=== PATIENT | female | born 1960 | race Caucasian/White ===

== ENCOUNTER 2017-01-07 08:30 | Inpatient (IN) | payer OTHER ==
[~2017-01-07] VITALS: Ht 158 cm; Wt 66.5 kg
[2017-01-08 04:24] LABS: HCT 26.7 % (37.0-47.0); HGB 8.9 g/dl (12.5-16.0); MCH 29.8 pg (25.0-31.0); MCHC 33.3 g/dL (32.0-36.0); MCV 89.3 fL (78.0-100.0); MPV 8.7 fL (6.0-9.5); RBC 2.99 M/uL (4.20-5.40); RDW 12.8 % (11.5-14.0); WBC 13.6 K/uL (4.0-10.5)
[2017-01-08 04:47] LABS: CREATININE 0.5 mg/dL (0.5-1.0)
[2017-01-08 16:49] LABS: HCT 31.5 % (37.0-47.0); HGB 10.5 g/dl (12.5-16.0); MCH 29.7 pg (25.0-31.0); MCHC 33.3 g/dL (32.0-36.0); MPV 9.4 fL (6.0-9.5); RBC 3.54 M/uL (4.20-5.40); RDW 13.5 % (11.5-14.0); WBC 11.9 K/uL (4.0-10.5)
[2017-01-08 17:05] LABS: CREATININE 0.7 mg/dL (0.5-1.0)
[2017-01-08 20:47] LABS: COLOR YELLOW (YELLOW)
[2017-01-08 20:48] LABS: BILIRUBIN NEGATIVE (NEGATIVE); BLOOD NEGATIVE Ery/uL (NEGATIVE); CLARITY CLEAR (CLEAR); GLUCOSE (U) NORMAL (NORMAL); KETONE (U) NEGATIVE (NEGATIVE); LEUKOCYTES NEGATIVE Leu/uL (NEGATIVE); NITRITE NEGATIVE (NEGATIVE); PROTEIN NEGATIVE (NEGATIVE); SPECIFIC GRAVITY 1.005 (1.001-1.030); URINARY RBC RARE; URINARY WBC RARE; UROBILINOGEN 0.2 mg/dL (0.2-1.0)
[2017-01-09 04:00] LABS: BASOPHIL 0.2 % (0-2); EOSINOPHIL 0.7 % (0-5); HCT 27.9 % (37.0-47.0); HGB 9.5 g/dl (12.5-16.0); LYMPHOCYTE 17.1 % (15-48); MCH 29.9 pg (25.0-31.0); MCHC 34.1 g/dL (32.0-36.0); MCV 87.7 fL (78.0-100.0); MONOCYTE 9.7 % (0-12); MPV 9.5 fL (6.0-9.5); NEUTROPHIL 72.3 % (41-80); PLT 243 K/uL (150-400); RBC 3.18 M/uL (4.20-5.40); RDW 13.6 % (11.5-14.0); WBC 11.2 K/uL (4.0-10.5)
[2017-01-09 04:15] LABS: CREATININE 0.5 mg/dL (0.5-1.0)
--- NOTE | 2017-01-09 13:37 | NUR ---
REPORT GIVEN TO SABA FRANKLIN
--- NOTE | 2017-01-09 13:51 | NUR ---
PT AMBULATORY TO MED-SURG ROOM 219 WITH PT ASSISTANCE, NO DISTRESS NOTED, PTS VSS AT TIME OF TRANSFER
[2017-01-10 05:09] LABS: HCT 27.5 % (37.0-47.0); HGB 9.2 g/dl (12.5-16.0); MCH 29.3 pg (25.0-31.0); MCHC 33.5 g/dL (32.0-36.0); MCV 87.6 fL (78.0-100.0); MPV 9.3 fL (6.0-9.5); RBC 3.14 M/uL (4.20-5.40); RDW 13.4 % (11.5-14.0)
[2017-01-10 05:28] LABS: CREATININE 0.5 mg/dL (0.5-1.0); POTASSIUM 3.8 mmol/L (3.5-5.1)
== END 2017-01-10 14:57 | DRG 470 ==
LOC: FMS 08:30 → FTCU 01-08 14:28 → FMS 01-09 13:00
PROVIDERS: Internal Medicine Nephrology; ADMIT Legal Medicine
PROC: 30233N1 Transfusion of Nonautologous Red Blood Cells into Peripheral Vein, Percutaneous Approach (ICD-10-PCS; 2017-01-07)
PROC: 0SR904Z Replacement of Right Hip Joint with Ceramic on Polyethylene Synthetic Substitute, Open Approach (ICD-10-PCS; principal; 2017-01-07 08:30)
DX: M16.11 Unilateral primary osteoarthritis, right hip (principal); D62 Acute posthemorrhagic anemia; I95.81 Postprocedural hypotension; I95.1 Orthostatic hypotension; Z22.322 Carrier or suspected carrier of Methicillin resistant Staphylococcus aureus
CPT/HCPCS: 36415; 36430; 71010; 73501; 76000; 80048; 81001; 85025; 86850; 86900; 86901; 86922; 87040; 88304; 88311; 94010; 94667; 94668; 94760; 94762; 97110; 97116; 97161; 97165; 97530; 97530-GP; 97535; C1713; C1776; J0131; J0697; J1170; J1885; J2270; J2405; J2704; J2795; J3010; P9016

== ENCOUNTER 2017-01-10 14:57 | Inpatient (IN) | payer OTHER ==
[~2017-01-10] VITALS: Ht 157.5 cm; Wt 64.0 kg
[2017-01-16] MEDS ORDERED: VITAMIN D2000 UNI1 PO (09:59)
[2017-01-16] MEDS ORDERED: OS-CAL500 MG PO (10:00)
[2017-01-16] MEDS ORDERED: ESTRACE42.5 GM TOP (10:00)
[2017-01-16] MEDS ORDERED: ACETAMINOPHEN325 MG PO (10:03)
[2017-01-16] MEDS ORDERED: PRILOSEC20 MG PO (10:04)
[2017-01-16] MEDS ORDERED: FEOSOL325 MG PO (10:04)
[2017-01-16] MEDS ORDERED: PERCOCET 5/3251 TAB PO (10:05)
[2017-01-16] MEDS ORDERED: XARELTO10 MG PO (10:05)
[2017-01-16] MEDS ORDERED: COLACE100 MG PO (10:06)
[2017-01-16] MEDS ORDERED: BENADRYL25 MG PO (10:06)
[2017-01-16] MEDS ORDERED: CLARITIN10 MG PO (10:07)
--- NOTE | 2017-01-16 11:40 | NUR ---
56 YEAR OLD FEMALE DC HOME WITH FAMILY, A/O X3, WENT OVER DC INSTRUCTIONS, R/V UNDERSTANDING
--- NOTE | 2017-01-16 15:36 | NUR ---
DISCHARGE NOTE- PATIENT DICHARGED HOME TODAY WITH MOTHER STAYING WITH PATIENT. MRS. OLSEN TO HAVE OUTPATIENT THERAPY AT [facility] [place] STARTING ON 01/18. CURRENT DME INCLUDED ROLLING WALKER AND 3-IN-1. NO ADDITIONAL DME NEEDED. NO PRIOR AUTHORZIATION FOR [facility] REQUIRED.
== END 2017-01-16 11:44 | disposition home or self-care (01) | DRG 560 ==
LOC: FSNU 14:57
PROVIDERS: ADMIT Internal Medicine Nephrology
DX: Z47.1 Aftercare following joint replacement surgery (principal); D62 Acute posthemorrhagic anemia; Z96.641 Presence of right artificial hip joint; I95.1 Orthostatic hypotension; M54.9 Dorsalgia, unspecified; G89.29 Other chronic pain
CPT/HCPCS: 97110; 97116; 97161; 97165; 97530; 97530-GP; 97535